=== PATIENT | male | born 1970 | race African-American/Black ===

== ENCOUNTER 2018-05-26 12:38 | Emergency (ER) | payer MEDICAID ==
[~2018-05-26] VITALS: Ht 175.3 cm; Wt 100.0 kg
[~2018-05-26 12:38] MED LIST: INSLAN SQ; INSU100V SQ; LISI-660 PO
[2018-05-26 12:59] LABS: GLUCOSE,POINT OF CARE 285 MG/DL (70-110)
[2018-05-26] MEDS ORDERED: SODIUM CHLORIDE 0.9% 2,000 ML IV ONE (14:15)
[2018-05-26] MEDS ORDERED: FentaNYL CITRATE-PF 100 MCG/2 ML VIAL IVP ONE (14:15)
[2018-05-26] MEDS ORDERED: ONDANSETRON HCL 4 MG/2 ML VIAL IVP ONE ×2 (14:15→16:00)
[2018-05-26 14:30] LABS: BASOPHILS % (AUTO) 1.6 % (0.0-2.0); EOSINOPHILS % (AUTO) 1.6 % (1.0-6.0); HEMATOCRIT 36.7 % (41-53); LYMPHOCYTES # (AUTO) 1.5 K/uL (1.0-4.8); LYMPHOCYTES % (AUTO) 25.1 % (22.0-44.0); MEAN CORPUSCULAR HEMOGLOBIN 31.6 pg (26.0-34.0); MEAN CORPUSCULAR HGB CONC 35.6 G/dL (31.0-37.0); MEAN CORPUSCULAR VOLUME 89 fL (80-100); MONOCYTES # (AUTO) 0.4 K/uL (0.1-1.0); MONOCYTES % (AUTO) 5.9 % (2.0-9.0); NEUTROPHILS # (AUTO) 3.9 K/uL (1.8-7.7); NEUTROPHILS % (AUTO) 65.8 % (40.0-70.0); PLATELET COUNT (AUTO) 248 K/uL (150-450); RED BLOOD CELL COUNT(AUTO) 4.13 MIL/uL (4.50-5.90); RED CELL DISTRIBUTION WIDTH 14.2 % (11.5-14.5)
[2018-05-26 15:05] LABS: ALBUMIN 3.6 g/dL (3.4-5.0); ALKALINE PHOSPHATASE 84 U/L (46-116); ANION GAP 9 mmol/L (8-16); BILIRUBIN,TOTAL 0.7 mg/dL (0.1-1.0); CALCIUM, TOTAL 8.2 mg/dL (8.8-10.5); CARBON DIOXIDE 27 mmol/L (22-29); CHLORIDE 93 mmol/L (98-107); GLUCOSE,RANDOM 309 mg/dL (70-110); LIPASE 129 U/L (73-393); POTASSIUM 4.3 mmol/L (3.5-5.1); SODIUM SERUM 129 mmol/L (136-145); UREA NITROGEN, BLOOD 7 mg/dL (7-18)
[2018-05-26 15:56] LABS: ALANINE AMINOTRANSFERASE 59 U/L (12-78); ASPARTATE AMINOTRANSFERASE 30 U/L (15-37); GLOMERULAR FILTR. RATE CALC > 60 mL/min (>60); TOTAL PROTEIN, SERUM 8.4 g/dL (6.4-8.2); TRIGLYCERIDES 1129 mg/dL (15-150)
[2018-05-26] MEDS ORDERED: HYDROCODONE/ACETAMINOPHEN 5-325 MG TABLET PO ONE (16:00)
[2018-05-26 17:12] VITALS: BP 118/56
[2018-05-26 19:09] LABS: LACTIC ACID 1.7 mmol/L (0.4-2.0)
== END 2018-05-26 17:14 | disposition home or self-care (01) ==
LOC: EMS 12:38
DX: E11.65 Type 2 diabetes mellitus with hyperglycemia (principal); K52.9 Noninfective gastroenteritis and colitis, unspecified; K59.00 Constipation, unspecified; E78.1 Pure hyperglyceridemia; I10 Essential (primary) hypertension; F17.210 Nicotine dependence, cigarettes, uncomplicated; Z79.4 Long term (current) use of insulin; Z79.899 Other long term (current) drug therapy
CPT/HCPCS: 36415; 71045; 74176; 80053; 82962; 83605; 83690; 84478; 84484; 85025; 93005; 96361; 96374; 96375; 96376; 99285; 99406; G0480; J2405; J3010; J7030

== ENCOUNTER 2020-12-31 17:00 | Emergency (ER) | payer MEDICAID ==
[~2020-12-31] VITALS: Ht 177.8 cm; Wt 104.5 kg
[~2020-12-31 17:00] MED LIST changes: -LISI-660 PO; +LISI-892 PO
[2020-12-31] MEDS ORDERED: SODIUM CHLORIDE 0.9% 100 ML ONE (17:19)
[2020-12-31] MEDS ORDERED: IOHEXOL 350 MG/ML 150 ML VIAL ONE (17:19)
[2020-12-31 17:35] LABS: BASOPHILS % (AUTO) 0.9 % (0.0-2.0); EOSINOPHILS % (AUTO) 1.4 % (1.0-6.0); HEMATOCRIT 39.5 % (41-53); HEMOGLOBIN 12.9 g/dL (13.5-17.5); LYMPHOCYTES # (AUTO) 2.1 K/uL (1.0-4.8); LYMPHOCYTES % (AUTO) 28.4 % (22.0-44.0); MEAN CORPUSCULAR HEMOGLOBIN 29.8 pg (26.0-34.0); MEAN CORPUSCULAR HGB CONC 32.7 G/dL (31.0-37.0); MEAN CORPUSCULAR VOLUME 91 fL (80-100); MONOCYTES # (AUTO) 0.4 K/uL (0.1-1.0); NEUTROPHILS # (AUTO) 4.6 K/uL (1.8-7.7); NEUTROPHILS % (AUTO) 63.3 % (40.0-70.0); PLATELET COUNT (AUTO) 258 K/uL (150-450); RED BLOOD CELL COUNT(AUTO) 4.32 MIL/uL (4.50-5.90); RED CELL DISTRIBUTION WIDTH 12.7 % (11.5-14.5)
[2020-12-31 17:54] LABS: ANION GAP 10 mmol/L (8-16); CARBON DIOXIDE 26 mmol/L (22-29); CHLORIDE 105 mmol/L (98-107); CREATININE 0.91 mg/dL (0.60-1.30); GLOMERULAR FILTR. RATE CALC > 60 mL/min (>60); GLUCOSE,RANDOM 154 mg/dL (70-110); POTASSIUM 3.9 mmol/L (3.5-5.1); SODIUM SERUM 141 mmol/L (136-145); UREA NITROGEN, BLOOD 14 mg/dL (7-18)
[2020-12-31 17:58] LABS: ALANINE AMINOTRANSFERASE 25 U/L (12-78); ALBUMIN 3.8 g/dL (3.4-5.0); ALKALINE PHOSPHATASE 92 U/L (46-116); ASPARTATE AMINOTRANSFERASE 13 U/L (15-37); BILIRUBIN,TOTAL 0.4 mg/dL (0.1-1.0); TOTAL PROTEIN, SERUM 7.8 g/dL (6.4-8.2)
[2020-12-31] MEDS ORDERED: PERTUSS(ACELL),DIPH,TET VAC/PF 0.5 ML SYRINGE IM. ONE (18:00)
[2020-12-31] MEDS ORDERED: KETOROLAC TROMETHAMINE 30 MG/ML VIAL IVP ONE (20:00)
[2020-12-31] MEDS ORDERED: ACETAMINOPHEN 500 MG TABLET PO ONE (20:00)
[2020-12-31] MEDS ORDERED: SODIUM CHLORIDE 0.9% 1,000 ML IV ONE (20:00)
[2020-12-31] MEDS ORDERED: VANCOMYCIN HCL 1.5 GM in DEXTROSE 5%-WATER 250 ML IV ONE (20:30)
[2020-12-31] MEDS ORDERED: CefTRIAXone SODIUM 2 GM in DEXTROSE 5%-WATER 50 ML IV ONE (20:30)
[2020-12-31] MEDS ORDERED: MORPHINE SULFATE 4 MG/ML SYRINGE IVP ONE (20:30)
[2020-12-31 22:27] LABS: COVID AG,FIA SOURCE NASOPHARYNGEAL
[2021-01-01 07:30] VITALS: BP 121/74
== END 2021-01-01 07:30 | disposition left against medical advice (07) ==
LOC: EMS 17:06
DX: T84.7XXA Infection and inflammatory reaction due to other internal orthopedic prosthetic devices, implants and grafts, initial encounter (principal); L03.211 Cellulitis of face; M54.2 Cervicalgia; L08.9 Local infection of the skin and subcutaneous tissue, unspecified; E11.9 Type 2 diabetes mellitus without complications; I10 Essential (primary) hypertension; Z20.822 Contact with and (suspected) exposure to COVID-19; Z79.4 Long term (current) use of insulin; Z79.899 Other long term (current) drug therapy
CPT/HCPCS: 36415; 70491; 70498; 80053; 85025; 87426; 90471; 90715; 96361; 96365; 96366; 96367; 96375; 99285; A9575; J0696; J1885; J2270; J3370; J7030; J7050; J7060 ×2

== ENCOUNTER 2021-07-30 13:57 | Emergency (ER) | payer MEDICAID ==
[~2021-07-30] VITALS: Ht 175.3 cm; Wt 100.0 kg
[~2021-07-30 13:57] MED LIST changes: +ASPI-1515 PO; +ATOR20TA65 PO; -INSU100V SQ; -LISI-892 PO; +LISI-893 PO
[2021-07-30] MEDS ORDERED: FLUO10CA24 PO (15:18)
[2021-07-30] MEDS ORDERED: ASPI-1515 PO ×3 (15:18→15:21)
[2021-07-30] MEDS ORDERED: INSLAN SQ ×3 (15:18→15:21)
[2021-07-30] MEDS ORDERED: ATOR20TA65 PO ×3 (15:18→15:21)
[2021-07-30] MEDS ORDERED: glucometer (15:18)
[2021-07-30] MEDS ORDERED: LISI-893 PO ×3 (15:18→15:21)
[2021-07-30] MEDS ORDERED: METF-1211 PO (15:30)
[2021-07-30 15:47] VITALS: BP 140/87
== END 2021-07-30 15:56 | disposition home or self-care (01) ==
LOC: EMS 13:57
DX: E11.65 Type 2 diabetes mellitus with hyperglycemia (principal); I10 Essential (primary) hypertension; F32.9 Major depressive disorder, single episode, unspecified; F20.9 Schizophrenia, unspecified; F41.9 Anxiety disorder, unspecified; Z76.0 Encounter for issue of repeat prescription; Z79.4 Long term (current) use of insulin; Z79.899 Other long term (current) drug therapy
CPT/HCPCS: 82962; 99282

== ENCOUNTER 2021-08-13 10:35 | Emergency (ER) | payer MEDICAID ==
[~2021-08-13] VITALS: Ht 175.3 cm; Wt 100.0 kg
[~2021-08-13 10:35] MED LIST changes: +FLUO10CA24 PO; +METF-1211 PO; +glucometer
[2021-08-13 11:20] VITALS: BP 149/84
== END 2021-08-13 11:57 | disposition home or self-care (01) ==
LOC: EMS 10:44
DX: I10 Essential (primary) hypertension (principal); R20.0 Anesthesia of skin; F31.9 Bipolar disorder, unspecified; F41.9 Anxiety disorder, unspecified; E11.9 Type 2 diabetes mellitus without complications; F20.9 Schizophrenia, unspecified; Z86.73 Personal history of transient ischemic attack (TIA), and cerebral infarction without residual deficits; Z79.4 Long term (current) use of insulin; Z79.82 Long term (current) use of aspirin
CPT/HCPCS: 99281; Z7502

== ENCOUNTER 2021-09-04 05:51 | Emergency (ER) | payer MEDICAID ==
[~2021-09-04] VITALS: Ht 175.3 cm; Wt 100.0 kg
[~2021-09-04 05:51] MED LIST changes: -glucometer
[2021-09-04] MEDS ORDERED: LevETIRAcetam 1,000 MG in DEXTROSE 5%-WATER 100 ML IV ONE (06:15)
[2021-09-04 06:33] LABS: ANION GAP 8 mmol/L (8-16); CALCIUM, TOTAL 9.2 mg/dL (8.8-10.5); CARBON DIOXIDE 31 mmol/L (22-29); CHLORIDE 103 mmol/L (98-107); CREATININE 1.04 mg/dL (0.60-1.30); GLOMERULAR FILTR. RATE CALC > 60 mL/min (>60); GLUCOSE,RANDOM 114 mg/dL (70-110); POTASSIUM 3.6 mmol/L (3.5-5.1); SODIUM SERUM 142 mmol/L (136-145); UREA NITROGEN, BLOOD 12 mg/dL (7-18)
[2021-09-04 06:48] LABS: AMPHET/METH SCREEN,URINE NEGATIVE (NEGATIVE); BARBITURATE SCREEN, URINE NEGATIVE (NEGATIVE); BENZODIAZEPINES SCREEN,URINE NEGATIVE (NEGATIVE); CANNABINOID SCREEN,URINE NEGATIVE (NEGATIVE); COCAINE SCREEN,URINE NEGATIVE (NEGATIVE); METHADONE SCREEN, URINE NEGATIVE (NEGATIVE); OPIATE SCREEN,URINE NEGATIVE (NEGATIVE)
[2021-09-04 06:50] LABS: PHENCYCLIDINE SCREEN,URINE POSITIVE (NEGATIVE)
[2021-09-04] MEDS ORDERED: LEVE500T20 PO (07:37)
[2021-09-04 07:45] VITALS: BP 181/89
== END 2021-09-04 08:18 | disposition home or self-care (01) ==
LOC: EMS 05:59
DX: G40.909 Epilepsy, unspecified, not intractable, without status epilepticus (principal); F16.10 Hallucinogen abuse, uncomplicated; F41.9 Anxiety disorder, unspecified; F31.9 Bipolar disorder, unspecified; E11.9 Type 2 diabetes mellitus without complications; I10 Essential (primary) hypertension; F20.9 Schizophrenia, unspecified; Z86.73 Personal history of transient ischemic attack (TIA), and cerebral infarction without residual deficits; Z79.4 Long term (current) use of insulin; Z79.82 Long term (current) use of aspirin
CPT/HCPCS: 36415; 80048; 80307; 96365; 99284; J0712; J7060

== ENCOUNTER 2021-10-05 18:44 | Emergency (ER) | payer MEDICAID ==
[~2021-10-05] VITALS: Ht 175.3 cm; Wt 97.8 kg
[~2021-10-05 18:44] MED LIST changes: +LEVE500T20 PO
[2021-10-05 19:44] LABS: BASOPHILS % (AUTO) 0.7 % (0.0-2.0); EOSINOPHILS % (AUTO) 2.7 % (1.0-6.0); HEMATOCRIT 37.5 % (41-53); HEMOGLOBIN 12.6 g/dL (13.5-17.5); LYMPHOCYTES # (AUTO) 1.5 K/uL (1.0-4.8); LYMPHOCYTES % (AUTO) 23.5 % (22.0-44.0); MEAN CORPUSCULAR HGB CONC 33.6 G/dL (31.0-37.0); MEAN CORPUSCULAR VOLUME 89 fL (80-100); MONOCYTES # (AUTO) 0.5 K/uL (0.1-1.0); MONOCYTES % (AUTO) 7.9 % (2.0-9.0); NEUTROPHILS # (AUTO) 4.2 K/uL (1.8-7.7); NEUTROPHILS % (AUTO) 65.2 % (40.0-70.0); PLATELET COUNT (AUTO) 239 K/uL (150-450); RED BLOOD CELL COUNT(AUTO) 4.21 MIL/uL (4.50-5.90); RED CELL DISTRIBUTION WIDTH 12.2 % (11.5-14.5)
[2021-10-05 19:56] LABS: GLUCOMETER DEV NAME(LOC) ERT.5; GLUCOSE,POINT OF CARE 101 MG/DL (70-110)
[2021-10-05 20:00] LABS: ALKALINE PHOSPHATASE 91 U/L (46-116); BILIRUBIN,TOTAL 0.4 mg/dL (0.1-1.0); CALCIUM, TOTAL 9.1 mg/dL (8.8-10.5); CARBON DIOXIDE 29 mmol/L (22-29); GLOMERULAR FILTR. RATE CALC > 60 mL/min (>60); GLUCOSE,RANDOM 105 mg/dL (70-110); LACTIC ACID 0.6 mmol/L (0.4-2.0); TOTAL PROTEIN, SERUM 7.7 g/dL (6.4-8.2); UREA NITROGEN, BLOOD 15 mg/dL (7-18)
[2021-10-05 20:10] LABS: ALANINE AMINOTRANSFERASE 33 U/L (12-78); ALBUMIN 3.5 g/dL (3.4-5.0); ANION GAP 6 mmol/L (8-16); ASPARTATE AMINOTRANSFERASE 26 U/L (15-37); CHLORIDE 106 mmol/L (98-107); SODIUM SERUM 141 mmol/L (136-145)
[2021-10-05] MEDS ORDERED: ACETAMINOPHEN/CODEINE 300 MG-30 MG/12.5 ML ELIXIR UDCUP PO ONE (22:30)
[2021-10-05] MEDS ORDERED: LevETIRAcetam 100 MG/ML 5 ML SOLUTION UDCUP PO ONE (22:30)
[2021-10-05] MEDS ORDERED: LISI-893 PO (23:30)
[2021-10-05] MEDS ORDERED: LEVE500T20 PO (23:30)
[2021-10-06 01:04] VITALS: BP 121/75
[2021-10-06] MEDS ORDERED: AMOX1TAB16 PO (09:18)
== END 2021-10-06 02:13 | disposition home or self-care (01) ==
LOC: EMS 18:46
DX: G40.909 Epilepsy, unspecified, not intractable, without status epilepticus (principal); E11.9 Type 2 diabetes mellitus without complications; F31.9 Bipolar disorder, unspecified; I10 Essential (primary) hypertension; F41.9 Anxiety disorder, unspecified; F20.9 Schizophrenia, unspecified; Z86.73 Personal history of transient ischemic attack (TIA), and cerebral infarction without residual deficits; Z86.69 Personal history of other diseases of the nervous system and sense organs; Z86.79 Personal history of other diseases of the circulatory system
CPT/HCPCS: 71045; 80053; 82962; 83605; 85025; 93005; 99285; 36415-L1; 36415-TC

== ENCOUNTER 2021-10-06 04:54 | Emergency (ER) | payer MEDICAID ==
[~2021-10-06] VITALS: Ht 175.3 cm; Wt 97.8 kg
[2021-10-06 08:45] VITALS: BP 160/82
[2021-10-06] MEDS ORDERED: NICOTINE 14 MG/24 HOUR PATCH TD ONE (09:15)
[2021-10-06] MEDS ORDERED: AMOX1TAB16 PO (09:18)
== END 2021-10-06 09:19 | disposition left against medical advice (07) ==
LOC: EMS 04:54
DX: M27.2 Inflammatory conditions of jaws (principal); S50.311A Abrasion of right elbow, initial encounter; F41.9 Anxiety disorder, unspecified; F31.9 Bipolar disorder, unspecified; E11.9 Type 2 diabetes mellitus without complications; I10 Essential (primary) hypertension; F20.9 Schizophrenia, unspecified; Z86.73 Personal history of transient ischemic attack (TIA), and cerebral infarction without residual deficits; Z86.69 Personal history of other diseases of the nervous system and sense organs; Z86.79 Personal history of other diseases of the circulatory system; W05.0XXA Fall from non-moving wheelchair, initial encounter; Y92.89 Other specified places as the place of occurrence of the external cause; Y93.89 Activity, other specified; Y99.8 Other external cause status
CPT/HCPCS: 70450; 70486; 72125; 82962; 99284

== ENCOUNTER 2022-07-26 11:00 | Inpatient (IN) | payer MEDICAID ==
[~2022-07-26] VITALS: Ht 175.3 cm; Wt 98.4 kg
[~2022-07-26 11:00] MED LIST changes: +AMOX1TAB16 PO
[2022-07-26] MEDS ORDERED: INSLAN SQ (11:11)
[2022-07-26] MEDS ORDERED: SODIUM CHLORIDE 0.9% 1,000 ML IV ONE (12:15)
[2022-07-26 12:44] LABS: BASOPHILS % (AUTO) 0.6 % (0.0-2.0); EOSINOPHILS % (AUTO) 1.1 % (1.0-6.0); HEMATOCRIT 41.7 % (41-53); HEMOGLOBIN 13.5 g/dL (13.5-17.5); LYMPHOCYTES # (AUTO) 1.6 K/uL (1.0-4.8); LYMPHOCYTES % (AUTO) 21.9 % (22.0-44.0); MEAN CORPUSCULAR HEMOGLOBIN 29.6 pg (26.0-34.0); MEAN CORPUSCULAR HGB CONC 32.3 G/dL (31.0-37.0); MEAN CORPUSCULAR VOLUME 92 fL (80-100); MONOCYTES # (AUTO) 0.4 K/uL (0.1-1.0); MONOCYTES % (AUTO) 4.9 % (2.0-9.0); NEUTROPHILS # (AUTO) 5.2 K/uL (1.8-7.7); NEUTROPHILS % (AUTO) 71.5 % (40.0-70.0); PLATELET COUNT (AUTO) 289 K/uL (150-450); RED BLOOD CELL COUNT(AUTO) 4.55 MIL/uL (4.50-5.90)
[2022-07-26 12:53] LABS: ANION GAP 10 mmol/L (8-16); CALCIUM, TOTAL 9.2 mg/dL (8.8-10.5); CARBON DIOXIDE 26 mmol/L (22-29); CHLORIDE 101 mmol/L (98-107); CREATININE 0.93 mg/dL (0.60-1.30); GLOMERULAR FILTR. RATE CALC > 60 mL/min (>60); GLUCOSE,RANDOM 260 mg/dL (70-110); POTASSIUM 4.2 mmol/L (3.5-5.1); SODIUM SERUM 137 mmol/L (136-145); UREA NITROGEN, BLOOD 17 mg/dL (7-18)
[2022-07-26 12:58] LABS: ALANINE AMINOTRANSFERASE 31 U/L (12-78); ALKALINE PHOSPHATASE 100 U/L (46-116); ASPARTATE AMINOTRANSFERASE 19 U/L (15-37); BILIRUBIN,TOTAL 0.4 mg/dL (0.1-1.0); TOTAL PROTEIN, SERUM 8.3 g/dL (6.4-8.2)
[2022-07-26 13:00] LABS: LACTIC ACID 1.2 mmol/L (0.4-2.0)
[2022-07-26] MEDS ORDERED: PIPERACILLIN/TAZO 3.375 GM/D5W 50 ML IV ONE (15:15)
[2022-07-26 18:52] LABS: COVID AG,FIA SOURCE NASAL SWAB
[2022-07-26] MEDS ORDERED: MORPHINE SULFATE 2 MG/ML SYRINGE IVP PRN (19:00)
[2022-07-26] MEDS ORDERED: ONDANSETRON HCL 4 MG/2 ML VIAL IVP PRN (19:00)
[2022-07-26] MEDS ORDERED: DEXTROSE 50%-WATER 25 GM/50 ML SYRINGE IVP PRN (19:00)
[2022-07-26] MEDS: RINGERS SOLUTION,LACTATED 1,000 ML IV SCH (20:15)
[2022-07-26] MEDS: DOCUSATE SODIUM 100 MG CAPSULE PO SCH (21:00)
[2022-07-26 21:44] VITALS: BP 137/89
[2022-07-26] MEDS: INSULIN GLARGINE,HUM.REC.ANLOG 100 UNITS/ML SQ SCH (22:05)
[2022-07-27] MEDS ORDERED: SODIUM CHLORIDE 0.9% 250 ML IV ONE (01:36)
[2022-07-27] MEDS: CLINDAMYCIN 600 MG/D5% WATER 50 ML IV SCH ×3 (01:51→17:44)
[2022-07-27 03:39] VITALS: BP 140/76
[2022-07-27] MEDS: RINGERS SOLUTION,LACTATED 1,000 ML IV SCH ×2 (06:40→17:44)
[2022-07-27 07:47] VITALS: BP 144/93
[2022-07-27 08:26] LABS: GLUCOMETER DEV NAME(LOC) 6S.1B; GLUCOSE,POINT OF CARE 112 MG/DL (70-110)
[2022-07-27 08:26] LABS: GLUCOMETER DEV NAME(LOC) 6S.1B; GLUCOSE,POINT OF CARE 124 MG/DL (70-110)
[2022-07-27] MEDS: DOCUSATE SODIUM 100 MG CAPSULE PO SCH ×2 (09:00→20:33)
[2022-07-27] MEDS: LevETIRAcetam 500 MG in DEXTROSE 5%-WATER 100 ML IV SCH ×2 (09:55→20:20)
[2022-07-27] MEDS: INSULIN LISPRO 100 UNITS/ML SQ PRN ×3 (13:27→20:22)
[2022-07-27 13:36] LABS: GLUCOMETER DEV NAME(LOC) 6S.1B; GLUCOSE,POINT OF CARE 103 MG/DL (70-110)
[2022-07-27 13:36] LABS: GLUCOMETER DEV NAME(LOC) 6S.1B; GLUCOSE,POINT OF CARE 123 MG/DL (70-110)
[2022-07-27 15:42] VITALS: BP 137/88
[2022-07-27] MEDS: AMPICILLIN SODIUM/SULBACTAM NA 3 GM in SODIUM CHLORIDE 0.9% 100 ML IV SCH ×2 (19:03→23:23)
[2022-07-27 19:52] LABS: GLUCOMETER DEV NAME(LOC) 6S.1B; GLUCOSE,POINT OF CARE 124 MG/DL (70-110)
[2022-07-27 20:01] VITALS: BP 148/86
[2022-07-27] MEDS: INSULIN GLARGINE,HUM.REC.ANLOG 100 UNITS/ML SQ SCH (20:22)
[2022-07-27] MEDS: HEPARIN SODIUM,PORCINE 5,000 UNITS/ML VIAL SQ SCH (23:23)
[2022-07-28 02:17] LABS: GLUCOMETER DEV NAME(LOC) 6N.2B; GLUCOSE,POINT OF CARE 174 MG/DL (70-110)
[2022-07-28 04:08] VITALS: BP 137/77
[2022-07-28] MEDS: AMPICILLIN SODIUM/SULBACTAM NA 3 GM in SODIUM CHLORIDE 0.9% 100 ML IV SCH ×3 (06:06→17:46)
[2022-07-28 06:37] LABS: GLUCOMETER DEV NAME(LOC) 6N.2B; GLUCOSE,POINT OF CARE 115 MG/DL (70-110)
[2022-07-28 07:32] VITALS: BP 153/89
[2022-07-28] MEDS: HEPARIN SODIUM,PORCINE 5,000 UNITS/ML VIAL SQ SCH ×3 (08:00→15:14)
[2022-07-28] MEDS: DOCUSATE SODIUM 100 MG CAPSULE PO SCH ×2 (08:05→20:43)
[2022-07-28] MEDS: LevETIRAcetam 500 MG in DEXTROSE 5%-WATER 100 ML IV SCH ×2 (08:08→20:44)
[2022-07-28] MEDS ORDERED: SODIUM CHLORIDE 0.9% 500 ML IV ONE (08:14)
[2022-07-28 08:29] LABS: ALANINE AMINOTRANSFERASE 16 U/L (12-78); ALBUMIN 3.3 g/dL (3.4-5.0); ALKALINE PHOSPHATASE 76 U/L (46-116); ANION GAP 4 mmol/L (8-16); ASPARTATE AMINOTRANSFERASE 15 U/L (15-37); BILIRUBIN,TOTAL 0.5 mg/dL (0.1-1.0); CALCIUM, TOTAL 8.8 mg/dL (8.8-10.5); CARBON DIOXIDE 31 mmol/L (22-29); CHLORIDE 105 mmol/L (98-107); CREATININE 0.98 mg/dL (0.60-1.30); GLOMERULAR FILTR. RATE CALC > 60 mL/min (>60); GLUCOSE,RANDOM 108 mg/dL (70-110); POTASSIUM 4.3 mmol/L (3.5-5.1); SODIUM SERUM 140 mmol/L (136-145); TOTAL PROTEIN, SERUM 6.9 g/dL (6.4-8.2); UREA NITROGEN, BLOOD 10 mg/dL (7-18)
[2022-07-28 08:38] LABS: C-REACTIVE PROTEIN QUANT 0.05 mg/dL (0.00-0.30)
[2022-07-28 10:05] LABS: BASOPHILS % (AUTO) 0.7 % (0.0-2.0); EOSINOPHILS % (AUTO) 2.6 % (1.0-6.0); HEMATOCRIT 39.6 % (41-53); HEMOGLOBIN 12.6 g/dL (13.5-17.5); LYMPHOCYTES # (AUTO) 2.1 K/uL (1.0-4.8); LYMPHOCYTES % (AUTO) 39.5 % (22.0-44.0); MEAN CORPUSCULAR HEMOGLOBIN 29.4 pg (26.0-34.0); MEAN CORPUSCULAR HGB CONC 31.8 G/dL (31.0-37.0); MEAN CORPUSCULAR VOLUME 92 fL (80-100); MONOCYTES # (AUTO) 0.4 K/uL (0.1-1.0); NEUTROPHILS # (AUTO) 2.6 K/uL (1.8-7.7); NEUTROPHILS % (AUTO) 49.2 % (40.0-70.0); PLATELET COUNT (AUTO) 266 K/uL (150-450); RED BLOOD CELL COUNT(AUTO) 4.28 MIL/uL (4.50-5.90); RED CELL DISTRIBUTION WIDTH 12.7 % (11.5-14.5)
[2022-07-28] MEDS: INSULIN LISPRO 100 UNITS/ML SQ PRN ×2 (11:48→17:47)
[2022-07-28] MEDS: RINGERS SOLUTION,LACTATED 1,000 ML IV SCH (11:49)
[2022-07-28 15:35] VITALS: BP 135/81
[2022-07-28 17:46] LABS: GLUCOMETER DEV NAME(LOC) 6S.1B; GLUCOSE,POINT OF CARE 144 MG/DL (70-110)
[2022-07-28 19:31] LABS: GLUCOMETER DEV NAME(LOC) 6S.1B; GLUCOSE,POINT OF CARE 157 MG/DL (70-110)
[2022-07-28 20:00] VITALS: BP 151/80
[2022-07-28] MEDS: INSULIN GLARGINE,HUM.REC.ANLOG 100 UNITS/ML SQ SCH (20:52)
[2022-07-28 21:37] LABS: GLUCOMETER DEV NAME(LOC) 6N.2B; GLUCOSE,POINT OF CARE 123 MG/DL (70-110)
[2022-07-29] MEDS: AMPICILLIN SODIUM/SULBACTAM NA 3 GM in SODIUM CHLORIDE 0.9% 100 ML IV SCH ×5 (00:16→23:30)
[2022-07-29 04:38] VITALS: BP 140/96
[2022-07-29] MEDS: INSULIN LISPRO 100 UNITS/ML SQ PRN ×2 (05:40→17:39)
[2022-07-29 05:56] LABS: GLUCOMETER DEV NAME(LOC) 6S.1B; GLUCOSE,POINT OF CARE 159 MG/DL (70-110)
[2022-07-29 07:30] VITALS: BP 135/68
[2022-07-29] MEDS: LevETIRAcetam 500 MG in DEXTROSE 5%-WATER 100 ML IV SCH ×2 (08:15→20:16)
[2022-07-29] MEDS: HEPARIN SODIUM,PORCINE 5,000 UNITS/ML VIAL SQ SCH ×4 (08:20→23:31)
[2022-07-29] MEDS: DOCUSATE SODIUM 100 MG CAPSULE PO SCH ×2 (08:21→20:20)
[2022-07-29] MEDS: RINGERS SOLUTION,LACTATED 1,000 ML IV SCH (08:23)
[2022-07-29 11:51] LABS: GLUCOMETER DEV NAME(LOC) 6S.1B; GLUCOSE,POINT OF CARE 127 MG/DL (70-110)
[2022-07-29 15:43] VITALS: BP 154/81
[2022-07-29 17:46] LABS: GLUCOMETER DEV NAME(LOC) 6S.1B; GLUCOSE,POINT OF CARE 236 MG/DL (70-110)
[2022-07-29 19:29] VITALS: BP 124/70
[2022-07-29] MEDS: INSULIN GLARGINE,HUM.REC.ANLOG 100 UNITS/ML SQ SCH (20:23)
[2022-07-29 21:16] LABS: GLUCOMETER DEV NAME(LOC) 6S.1B; GLUCOSE,POINT OF CARE 116 MG/DL (70-110)
[2022-07-30 04:17] VITALS: BP 140/76
[2022-07-30] MEDS: AMPICILLIN SODIUM/SULBACTAM NA 3 GM in SODIUM CHLORIDE 0.9% 100 ML IV SCH ×4 (05:50→23:25)
[2022-07-30] MEDS: INSULIN LISPRO 100 UNITS/ML SQ PRN ×3 (05:55→17:32)
[2022-07-30 06:31] LABS: GLUCOMETER DEV NAME(LOC) 6S.1B; GLUCOSE,POINT OF CARE 144 MG/DL (70-110)
[2022-07-30] MEDS: LevETIRAcetam 500 MG in DEXTROSE 5%-WATER 100 ML IV SCH ×2 (08:28→20:32)
[2022-07-30] MEDS: DOCUSATE SODIUM 100 MG CAPSULE PO SCH ×2 (08:28→20:33)
[2022-07-30] MEDS: HEPARIN SODIUM,PORCINE 5,000 UNITS/ML VIAL SQ SCH ×3 (08:28→23:22)
[2022-07-30 08:31] VITALS: BP 138/78
[2022-07-30 12:07] LABS: GLUCOMETER DEV NAME(LOC) 6N.2B; GLUCOSE,POINT OF CARE 174 MG/DL (70-110)
[2022-07-30 15:13] VITALS: BP 140/82
[2022-07-30 17:56] LABS: GLUCOMETER DEV NAME(LOC) 6N.2B; GLUCOSE,POINT OF CARE 258 MG/DL (70-110)
[2022-07-30 19:40] VITALS: BP 141/68
[2022-07-30] MEDS: INSULIN GLARGINE,HUM.REC.ANLOG 100 UNITS/ML SQ SCH (20:39)
[2022-07-30 22:21] LABS: GLUCOMETER DEV NAME(LOC) 6N.2B; GLUCOSE,POINT OF CARE 171 MG/DL (70-110)
[2022-07-31 04:10] VITALS: BP 147/75
[2022-07-31] MEDS: AMPICILLIN SODIUM/SULBACTAM NA 3 GM in SODIUM CHLORIDE 0.9% 100 ML IV SCH ×3 (05:41→17:57)
[2022-07-31 06:46] LABS: GLUCOMETER DEV NAME(LOC) 6S.1B; GLUCOSE,POINT OF CARE 117 MG/DL (70-110)
[2022-07-31] MEDS: HEPARIN SODIUM,PORCINE 5,000 UNITS/ML VIAL SQ SCH ×2 (07:45→16:40)
[2022-07-31] MEDS: DOCUSATE SODIUM 100 MG CAPSULE PO SCH ×2 (07:45→21:00)
[2022-07-31 08:06] VITALS: BP 140/78
[2022-07-31] MEDS ORDERED: RINGERS SOLUTION,LACTATED 1,000 ML IV ONE ×2 (08:15→09:49)
[2022-07-31] MEDS: LevETIRAcetam 500 MG in DEXTROSE 5%-WATER 100 ML IV SCH ×2 (09:00→21:24)
[2022-07-31] MEDS ORDERED: VANCOMYCIN HCL 1 GM/VIAL ONE (09:05)
[2022-07-31] MEDS ORDERED: BUPIVACAINE/EPI/PF 0.5% 30 ML VIAL ONE (09:10)
[2022-07-31] MEDS ORDERED: FentaNYL CITRATE PF 100 MCG/2 ML VIAL IVP PRN (10:00)
[2022-07-31] MEDS ORDERED: HYDROmorphone HCL 2 MG/ML SYRINGE IVP PRN (10:00)
[2022-07-31] MEDS ORDERED: MUPIROCIN CALCIUM 2% 22 GM OINTMENT ONE (10:32)
[2022-07-31] MEDS ORDERED: MORPHINE SULFATE 2 MG/ML SYRINGE IVP PRN ×2 (11:15)
[2022-07-31] MEDS ORDERED: ACETAMINOPHEN 1000 MG/ISO-OSM 100 ML IV ONE (11:15)
[2022-07-31] MEDS ORDERED: HYDROCODONE/ACETAMINOPHEN 5-325 MG TABLET PO PRN (11:15)
[2022-07-31 12:21] LABS: GLUCOMETER DEV NAME(LOC) 6N.2B; GLUCOSE,POINT OF CARE 181 MG/DL (70-110)
[2022-07-31 15:47] VITALS: BP 136/80
[2022-07-31 18:46] LABS: GLUCOMETER DEV NAME(LOC) 6N.2B; GLUCOSE,POINT OF CARE 183 MG/DL (70-110)
[2022-07-31] MEDS: OXYGEN THERAPY IH SCH (20:00)
[2022-07-31 20:04] VITALS: BP 131/77
[2022-07-31] MEDS: INSULIN GLARGINE,HUM.REC.ANLOG 100 UNITS/ML SQ SCH ×2 (21:00→22:55)
[2022-08-01] MEDS: AMPICILLIN SODIUM/SULBACTAM NA 3 GM in SODIUM CHLORIDE 0.9% 100 ML IV SCH ×5 (00:16→23:45)
[2022-08-01] MEDS: HEPARIN SODIUM,PORCINE 5,000 UNITS/ML VIAL SQ SCH ×4 (00:17→23:46)
[2022-08-01 04:12] VITALS: BP 127/67
[2022-08-01 05:46] LABS: GLUCOMETER DEV NAME(LOC) 6S.1B; GLUCOSE,POINT OF CARE 150 MG/DL (70-110)
[2022-08-01] MEDS: INSULIN LISPRO 100 UNITS/ML SQ PRN ×3 (05:58→20:35)
[2022-08-01] MEDS ORDERED: FentaNYL CITRATE PF 100 MCG/2 ML VIAL IVP ONE (06:42)
[2022-08-01] MEDS ORDERED: MIDAZOLAM HCL 2 MG/2 ML VIAL IVP ONE (06:42)
[2022-08-01] MEDS ORDERED: LIDOCAINE/PF 2% 5 ML VIAL IM ONE (06:52)
[2022-08-01] MEDS ORDERED: PROPOFOL 1% 20 ML VIAL IVP ONE (06:52)
[2022-08-01] MEDS ORDERED: ROCURONIUM BROMIDE 10 MG/ML 5 ML VIAL IVP ONE (06:52)
[2022-08-01] MEDS ORDERED: METOCLOPRAMIDE HCL 5 MG/ML 2 ML VIAL IVP ONE (06:52)
[2022-08-01] MEDS ORDERED: DEXAMETHASONE SOD PHOS 4 MG/ML VIAL IVP ONE (06:52)
[2022-08-01] MEDS ORDERED: KETOROLAC TROMETHAMINE 60 MG/2 ML VIAL IM ONE (06:52)
[2022-08-01] MEDS ORDERED: GLYCOPYRROLATE 0.2 MG/ML VIAL IM ONE (06:52)
[2022-08-01] MEDS ORDERED: ALBUTEROL SULFATE HFA 90 MCG/PUFF 8 GM INHALER IH ONE (06:52)
[2022-08-01 07:27] VITALS: BP 116/55
[2022-08-01] MEDS: OXYGEN THERAPY IH SCH ×2 (08:00→20:00)
[2022-08-01] MEDS: LevETIRAcetam 500 MG in DEXTROSE 5%-WATER 100 ML IV SCH ×2 (08:50→20:27)
[2022-08-01] MEDS: DOCUSATE SODIUM 100 MG CAPSULE PO SCH ×2 (08:59→21:00)
[2022-08-01 11:32] LABS: GLUCOMETER DEV NAME(LOC) 6N.2B; GLUCOSE,POINT OF CARE 158 MG/DL (70-110)
[2022-08-01 14:16] LABS: GLUCOMETER DEV NAME(LOC) 6N.2B; GLUCOSE,POINT OF CARE 123 MG/DL (70-110)
[2022-08-01 15:37] VITALS: BP 134/83
[2022-08-01] MEDS ORDERED: SODIUM CHLORIDE 0.9% 500 ML IV ONE (17:37)
[2022-08-01 19:48] VITALS: BP 123/58
[2022-08-01] MEDS: INSULIN GLARGINE,HUM.REC.ANLOG 100 UNITS/ML SQ SCH (20:34)
[2022-08-01 20:36] LABS: GLUCOMETER DEV NAME(LOC) 6S.1B; GLUCOSE,POINT OF CARE 171 MG/DL (70-110)
[2022-08-01 23:56] LABS: GLUCOMETER DEV NAME(LOC) 6N.2B; GLUCOSE,POINT OF CARE 156 MG/DL (70-110)
[2022-08-02 04:23] VITALS: BP 125/57
[2022-08-02] MEDS: AMPICILLIN SODIUM/SULBACTAM NA 3 GM in SODIUM CHLORIDE 0.9% 100 ML IV SCH ×2 (05:56→11:39)
[2022-08-02 06:36] LABS: GLUCOMETER DEV NAME(LOC) 6N.2B; GLUCOSE,POINT OF CARE 136 MG/DL (70-110)
[2022-08-02 07:39] VITALS: BP 128/66
[2022-08-02] MEDS: OXYGEN THERAPY IH SCH (08:00)
[2022-08-02] MEDS: LevETIRAcetam 500 MG in DEXTROSE 5%-WATER 100 ML IV SCH (08:22)
[2022-08-02] MEDS: HEPARIN SODIUM,PORCINE 5,000 UNITS/ML VIAL SQ SCH (08:23)
[2022-08-02] MEDS: DOCUSATE SODIUM 100 MG CAPSULE PO SCH (08:24)
== END 2022-08-02 13:41 | disposition left against medical advice (07) | DRG 711 ==
LOC: EMS 11:05 → 6N 20:46
PROVIDERS: ADMIT Internal Medicine; ATTEND Internal Medicine
PROC: 0NBV0ZZ Excision of Left Mandible, Open Approach (ICD-10-PCS; principal; 2022-07-30)
PROC: 0WP Anatomical Regions, General, Removal (ICD-10-PCS; 2022-07-30)
DX: T85.79XA Infection and inflammatory reaction due to other internal prosthetic devices, implants and grafts, initial encounter (principal); E11.69 Type 2 diabetes mellitus with other specified complication; E11.65 Type 2 diabetes mellitus with hyperglycemia; M27.2 Inflammatory conditions of jaws; F20.9 Schizophrenia, unspecified; I10 Essential (primary) hypertension; F31.9 Bipolar disorder, unspecified; Z20.822 Contact with and (suspected) exposure to COVID-19; F41.9 Anxiety disorder, unspecified; Y83.8 Other surgical procedures as the cause of abnormal reaction of the patient, or of later complication, without mention of misadventure at the time of the procedure; E78.00 Pure hypercholesterolemia, unspecified; G40.909 Epilepsy, unspecified, not intractable, without status epilepticus; F99 Mental disorder, not otherwise specified; Z91.199 Patient's noncompliance with other medical treatment and regimen due to unspecified reason; Z86.73 Personal history of transient ischemic attack (TIA), and cerebral infarction without residual deficits; Z79.4 Long term (current) use of insulin; Z79.899 Other long term (current) drug therapy; Z79.82 Long term (current) use of aspirin; Y92.89 Other specified places as the place of occurrence of the external cause
CPT/HCPCS: 70110; 70450; 70487; 80053; 82962; 83605; 84484; 85025; 86140; 87040; 87070; 87081; 87205; 93005; 99285; J0131; J0295; J0690; J0712; J1100; J1644; J1815; J1885; J2250; J2270; J2405; J2543; J2704; J2765; J3010; J3370; J3490; J3535; J7040; J7050; J7060; J7120

== ENCOUNTER 2022-08-19 10:43 | Emergency (ER) | payer MEDICAID ==
[~2022-08-19] VITALS: Ht 175.3 cm; Wt 0.9 kg
[~2022-08-19 10:43] MED LIST changes: -AMOX1TAB16 PO; -ASPI-1515 PO; -ATOR20TA65 PO; -FLUO10CA24 PO; -LEVE500T20 PO; -LISI-893 PO; -METF-1211 PO
[2022-08-19 11:49] LABS: BASOPHILS % (AUTO) 0.5 % (0.0-2.0); EOSINOPHILS % (AUTO) 1.6 % (1.0-6.0); HEMATOCRIT 39.4 % (41-53); HEMOGLOBIN 12.8 g/dL (13.5-17.5); LYMPHOCYTES # (AUTO) 1.6 K/uL (1.0-4.8); LYMPHOCYTES % (AUTO) 24.8 % (22.0-44.0); MEAN CORPUSCULAR HEMOGLOBIN 30.2 pg (26.0-34.0); MEAN CORPUSCULAR HGB CONC 32.5 G/dL (31.0-37.0); MEAN CORPUSCULAR VOLUME 93 fL (80-100); MONOCYTES # (AUTO) 0.4 K/uL (0.1-1.0); MONOCYTES % (AUTO) 6.1 % (2.0-9.0); NEUTROPHILS # (AUTO) 4.4 K/uL (1.8-7.7); PLATELET COUNT (AUTO) 228 K/uL (150-450); RED BLOOD CELL COUNT(AUTO) 4.25 MIL/uL (4.50-5.90); RED CELL DISTRIBUTION WIDTH 12.9 % (11.5-14.5)
[2022-08-19 12:09] LABS: ANION GAP 9 mmol/L (8-16); CARBON DIOXIDE 27 mmol/L (22-29); CHLORIDE 105 mmol/L (98-107); CREATININE 1.07 mg/dL (0.60-1.30); GLOMERULAR FILTR. RATE CALC > 60 mL/min (>60); GLUCOSE,RANDOM 144 mg/dL (70-110); POTASSIUM 3.6 mmol/L (3.5-5.1); SODIUM SERUM 141 mmol/L (136-145); UREA NITROGEN, BLOOD 16 mg/dL (7-18)
[2022-08-19 12:12] LABS: ALANINE AMINOTRANSFERASE 45 U/L (12-78); ALBUMIN 3.8 g/dL (3.4-5.0); ALKALINE PHOSPHATASE 81 U/L (46-116); ASPARTATE AMINOTRANSFERASE 79 U/L (15-37); BILIRUBIN,TOTAL 0.4 mg/dL (0.1-1.0); TOTAL PROTEIN, SERUM 7.4 g/dL (6.4-8.2)
[2022-08-19 15:56] LABS: AMPHET/METH SCREEN,URINE NEGATIVE (NEGATIVE); BARBITURATE SCREEN, URINE NEGATIVE (NEGATIVE); BENZODIAZEPINES SCREEN,URINE NEGATIVE (NEGATIVE); CANNABINOID SCREEN,URINE NEGATIVE (NEGATIVE); COCAINE SCREEN,URINE NEGATIVE (NEGATIVE); METHADONE SCREEN, URINE NEGATIVE (NEGATIVE); OPIATE SCREEN,URINE NEGATIVE (NEGATIVE); PHENCYCLIDINE SCREEN,URINE POSITIVE (NEGATIVE)
[2022-08-19 16:00] VITALS: BP 132/78
== END 2022-08-19 16:23 | disposition home or self-care (01) ==
LOC: EMS 10:43
DX: F16.10 Hallucinogen abuse, uncomplicated (principal); F20.9 Schizophrenia, unspecified; E11.9 Type 2 diabetes mellitus without complications; F31.9 Bipolar disorder, unspecified; I10 Essential (primary) hypertension; F41.9 Anxiety disorder, unspecified; Z86.73 Personal history of transient ischemic attack (TIA), and cerebral infarction without residual deficits; Z79.4 Long term (current) use of insulin
CPT/HCPCS: 99283; 80053; 85025; 36415; 80307; G0480

== ENCOUNTER 2022-08-30 16:03 | Emergency (ER) | payer MEDICAID | END 2022-08-30 16:34 | disposition left against medical advice (07) | LOC: EMS 16:19 | DX: Z53.21 Procedure and treatment not carried out due to patient leaving prior to being seen by health care provider (principal) ==

== ENCOUNTER 2022-10-27 10:25 | Emergency (ER) | payer MEDICAID ==
[~2022-10-27] VITALS: Ht 175.3 cm; Wt 100.0 kg
[2022-10-27 10:29] VITALS: BP 128/78
[2022-10-27] MEDS ORDERED: LISI-893 PO ×2 (10:29→11:36)
[2022-10-27] MEDS ORDERED: ASPI-1450 PO (10:29)
[2022-10-27] MEDS ORDERED: ATOR20TA PO ×2 (10:36→11:36)
[2022-10-27] MEDS ORDERED: METF-1211 PO ×2 (10:36→11:36)
[2022-10-27] MEDS ORDERED: FLUO10CA24 PO (10:36)
[2022-10-27] MEDS ORDERED: ASPI-1227 PO (11:36)
[2022-10-27] MEDS ORDERED: INSLAN SQ (11:36)
[2022-10-27] MEDS ORDERED: LANC-893 TP (11:36)
[2022-10-27] MEDS ORDERED: FLUO20CA36 PO (11:36)
[2022-10-27] MEDS ORDERED: NEED-462 SQ (11:36)
== END 2022-10-27 11:43 | disposition home or self-care (01) ==
LOC: EMS 10:29
DX: E11.65 Type 2 diabetes mellitus with hyperglycemia (principal); F31.9 Bipolar disorder, unspecified; F41.9 Anxiety disorder, unspecified; I10 Essential (primary) hypertension; F20.9 Schizophrenia, unspecified; Z79.4 Long term (current) use of insulin; Z76.0 Encounter for issue of repeat prescription
CPT/HCPCS: 82962; 99282

== ENCOUNTER 2023-02-06 09:58 | Inpatient (IN) | payer MEDICAID ==
[~2023-02-06] VITALS: Ht 175.3 cm; Wt 105.3 kg
[~2023-02-06 09:58] MED LIST changes: +ASPI-1227 PO; +ASPI-1450 PO; +ATOR20TA PO; +FLUO10CA24 PO; +FLUO20CA36 PO; +LANC-893 TP; +LISI-893 PO; +METF-1211 PO; +NEED-462 SQ
[2023-02-06 10:27] LABS: BASOPHILS % (AUTO) 0.8 % (0.0-2.0); EOSINOPHILS % (AUTO) 0.8 % (1.0-6.0); HEMATOCRIT 42.1 % (41-53); HEMOGLOBIN 13.8 g/dL (13.5-17.5); LYMPHOCYTES # (AUTO) 1.2 K/uL (1.0-4.8); LYMPHOCYTES % (AUTO) 18.7 % (22.0-44.0); MEAN CORPUSCULAR HEMOGLOBIN 29.8 pg (26.0-34.0); MEAN CORPUSCULAR HGB CONC 32.7 G/dL (31.0-37.0); MEAN CORPUSCULAR VOLUME 91 fL (80-100); MONOCYTES # (AUTO) 0.3 K/uL (0.1-1.0); MONOCYTES % (AUTO) 4.4 % (2.0-9.0); NEUTROPHILS # (AUTO) 4.9 K/uL (1.8-7.7); NEUTROPHILS % (AUTO) 75.3 % (40.0-70.0); PLATELET COUNT (AUTO) 216 K/uL (150-450); RED BLOOD CELL COUNT(AUTO) 4.61 MIL/uL (4.50-5.90); RED CELL DISTRIBUTION WIDTH 13.5 % (11.5-14.5); WHITE BLOOD COUNT (AUTO) 6.5 K/uL (4.5-11.0)
[2023-02-06] MEDS ORDERED: SODIUM CHLORIDE 0.9% 100 ML ONE (10:38)
[2023-02-06] MEDS ORDERED: IOHEXOL 300 MG/ML 100 ML VIAL ONE (10:38)
[2023-02-06 10:42] LABS: PROTHROMBIN TIME 10.3 SEC (9.4-11.6)
[2023-02-06] MEDS ORDERED: ALTEPLASE PER STROKE PROTOCOL CLINICAL ONE (10:45)
[2023-02-06] MEDS ORDERED: SODIUM CHLORIDE 0.9% 1,000 ML IV ONE (10:45)
[2023-02-06] MEDS ORDERED: HydrALAZINE HCL 10 MG TABLET PO PRN (10:45)
[2023-02-06] MEDS ORDERED: ALTEPLASE 81 MG in WATER FOR INJECTION,STERILE 81 ML IV ONE (10:45)
[2023-02-06] MEDS ORDERED: DEXTROSE 50%-WATER 25 GM/50 ML SYRINGE IVP PRN (10:45)
[2023-02-06] MEDS ORDERED: ALTEPLASE 9 MG in WATER FOR INJECTION,STERILE 9 ML IV ONE (10:45)
[2023-02-06 10:49] LABS: ANION GAP 9 mmol/L (8-16); CALCIUM, TOTAL 9.4 mg/dL (8.8-10.5); CARBON DIOXIDE 27 mmol/L (22-29); CHLORIDE 97 mmol/L (98-107); CREATININE 1.12 mg/dL (0.60-1.30); GLOMERULAR FILTR. RATE CALC > 60 mL/min (>60); GLUCOSE,RANDOM 255 mg/dL (70-110); POTASSIUM 3.8 mmol/L (3.5-5.1); SODIUM SERUM 133 mmol/L (136-145); UREA NITROGEN, BLOOD 11 mg/dL (7-18)
[2023-02-06 10:56] LABS: ALANINE AMINOTRANSFERASE 39 U/L (12-78); ALBUMIN 3.9 g/dL (3.4-5.0); ALKALINE PHOSPHATASE 95 U/L (46-116); ASPARTATE AMINOTRANSFERASE 29 U/L (15-37); BILIRUBIN,TOTAL 0.5 mg/dL (0.1-1.0); TROPONIN I-HIGH SENSITIVITY 27 ng/L (<76)
[2023-02-06] MEDS ORDERED: ASPIRIN 81 MG CHEWABLE TABLET PO ONE (11:00)
[2023-02-06 11:44] LABS: APPEARANCE,URINE CLEAR (CLEAR); BILIRUBIN,URINE NEGATIVE (NEGATIVE); COLOR,URINE COLORLESS (YELLOW); GLUCOSE, URINE (UA) >=1000 mg/dL (NEGATIVE); KETONES,URINE NEGATIVE (NEGATIVE); LEUKOCYTE ESTERASE ,URINE NEGATIVE (NEGATIVE); NITRATE,URINE NEGATIVE (NEGATIVE); OCCULT BLOOD,URINE TRACE (NEGATIVE); PH,URINE 6.5 (5.0-8.0); PROTEIN,URINE 30-70 mg/dL (NEGATIVE); SPECIFIC GRAVITIY, URINE 1.021 (1.003-1.030); UROBILINOGEN,URINE <=1.0 mg/dL (<=1.0)
[2023-02-06 11:49] LABS: PH,URINE DRUG SCREEN 6.5 (5.0-8.0)
[2023-02-06 11:56] LABS: ALCOHOL, URINE DRUG SCREEN NEGATIVE (NEGATIVE); AMPHET/METH SCREEN,URINE NEGATIVE (NEGATIVE); BACTERIA,URINE None Seen /HPF (None Seen); BARBITURATE SCREEN, URINE NEGATIVE (NEGATIVE); BENZODIAZEPINES SCREEN,URINE NEGATIVE (NEGATIVE); CANNABINOID SCREEN,URINE NEGATIVE (NEGATIVE); COCAINE SCREEN,URINE NEGATIVE (NEGATIVE); METHADONE SCREEN, URINE NEGATIVE (NEGATIVE); OPIATE SCREEN,URINE NEGATIVE (NEGATIVE); PHENCYCLIDINE SCREEN,URINE POSITIVE (NEGATIVE); RBC,URINE 0-2 /HPF (0-2); WBC,URINE None Seen /HPF (0-5)
[2023-02-06 11:57] LABS: SQUAMOUS EPITHELIAL CELL,UR Few /LPF (None Seen)
[2023-02-06 12:07] LABS: COVID AG,FIA SOURCE NASAL SWAB
[2023-02-06 12:32] LABS: SARS-COV2 (COVID) ANTIGEN,FIA Negative (Negative)
[2023-02-06 15:10] VITALS: BP 146/80; PULSE 78; RESP 18; TEMP 98.2
[2023-02-06] MEDS: INSULIN LISPRO 100 UNITS/ML SQ PRN ×2 (17:42→20:25)
[2023-02-06 19:43] VITALS: BP 124/73; PULSE 82; RESP 19; TEMP 98.8
[2023-02-06 20:21] LABS: GLUCOMETER DEV NAME(LOC) 5S.2C; GLUCOSE,POINT OF CARE 275 MG/DL (70-110)
[2023-02-06 23:51] VITALS: BP 122/66; PULSE 77; RESP 19; TEMP 98.1
[2023-02-07 00:21] LABS: GLUCOMETER DEV NAME(LOC) 5N.2C; GLUCOSE,POINT OF CARE 186 MG/DL (70-110)
[2023-02-07 05:10] VITALS: BP 123/65; PULSE 75; RESP 19; TEMP 98.4
[2023-02-07] MEDS: INSULIN LISPRO 100 UNITS/ML SQ PRN ×2 (06:02→12:02)
[2023-02-07 08:40] VITALS: BP 138/72; PULSE 82; RESP 18; TEMP 99
[2023-02-07] MEDS ORDERED: LevETIRAcetam 500 MG TABLET PO SCH (10:45)
[2023-02-07 11:26] VITALS: BP 130/77; PULSE 73; RESP 19; TEMP 98
[2023-02-07] MEDS ORDERED: PHEN100C10 PO (12:18)
[2023-02-07] MEDS ORDERED: LEVE500T8 PO (12:20)
[2023-02-07] MEDS ORDERED: ACETAMINOPHEN 325 MG TABLET PO PRN (13:15)
[2023-02-07] MEDS ORDERED: MAGNESIUM HYDROXIDE SUSPENSION 30 ML UDCUP PO PRN (13:15)
[2023-02-07 14:56] LABS: GLUCOMETER DEV NAME(LOC) 5S.2C; GLUCOSE,POINT OF CARE 297 MG/DL (70-110)
[2023-02-07 14:56] LABS: GLUCOMETER DEV NAME(LOC) 5S.2C; GLUCOSE,POINT OF CARE 224 MG/DL (70-110)
[2023-02-07] MEDS ORDERED: HEPARIN SODIUM,PORCINE 5,000 UNITS/ML VIAL SQ SCH (16:00)
[2023-02-08 08:06] LABS: LDL CHOLESTEROL DIRECT 119 mg/dL (0-99)
[2023-02-08] MEDS ORDERED: FAMOTIDINE 20 MG TABLET PO SCH (09:00)
== END 2023-02-07 14:30 | disposition home or self-care (01) | DRG 812 ==
LOC: EMS 09:58 → 5S 13:29
PROVIDERS: ADMIT Internal Medicine; ATTEND Internal Medicine
DX: T40.991A Poisoning by other psychodysleptics [hallucinogens], accidental (unintentional), initial encounter (principal); G92.8 Other toxic encephalopathy; F31.9 Bipolar disorder, unspecified; G45.9 Transient cerebral ischemic attack, unspecified; F16.10 Hallucinogen abuse, uncomplicated; E11.9 Type 2 diabetes mellitus without complications; F41.9 Anxiety disorder, unspecified; I10 Essential (primary) hypertension; E66.9 Obesity, unspecified; Z20.822 Contact with and (suspected) exposure to COVID-19; R29.706 NIHSS score 6; G40.909 Epilepsy, unspecified, not intractable, without status epilepticus; F20.9 Schizophrenia, unspecified; Y92.89 Other specified places as the place of occurrence of the external cause; Z79.4 Long term (current) use of insulin; Z86.73 Personal history of transient ischemic attack (TIA), and cerebral infarction without residual deficits; Z79.899 Other long term (current) drug therapy; Z79.82 Long term (current) use of aspirin; Z83.3 Family history of diabetes mellitus; Z68.34 Body mass index [BMI] 34.0-34.9, adult
CPT/HCPCS: 70496; 70498; 70551; 71045; 80053; 80307; 81001; 82948; 82962; 83721; 84484; 85025; 85610; 85730; 86850; 86900; 86901; 92610; 93005; 93306; 97165; 97535; 99285; J2997; J7050; Q9967; 36415-L1; 36415-TC; 70450; 70450-TC

== ENCOUNTER 2023-06-15 00:01 | Inpatient (IN) | payer MEDICAID ==
[~2023-06-15] VITALS: Ht 182.9 cm; Wt 100.6 kg
[~2023-06-15 00:01] MED LIST changes: -ASPI-1227 PO; -FLUO20CA36 PO; -INSLAN SQ; +LEVE500T8 PO
[2023-06-15] MEDS ORDERED: LABETALOL HCL 5 MG/ML 20 ML VIAL IVP PRN ×4 (00:15)
[2023-06-15 00:24] LABS: BASOPHILS % (AUTO) 0.8 % (0.0-2.0); EOSINOPHILS % (AUTO) 1.9 % (1.0-6.0); HEMATOCRIT 40.9 % (41-53); LYMPHOCYTES # (AUTO) 1.8 K/uL (1.0-4.8); LYMPHOCYTES % (AUTO) 27.5 % (22.0-44.0); MEAN CORPUSCULAR HEMOGLOBIN 29.5 pg (26.0-34.0); MEAN CORPUSCULAR HGB CONC 31.8 G/dL (31.0-37.0); MEAN CORPUSCULAR VOLUME 93 fL (80-100); MONOCYTES # (AUTO) 0.4 K/uL (0.1-1.0); MONOCYTES % (AUTO) 5.6 % (2.0-9.0); NEUTROPHILS # (AUTO) 4.3 K/uL (1.8-7.7); NEUTROPHILS % (AUTO) 64.2 % (40.0-70.0); PLATELET COUNT (AUTO) 226 K/uL (150-450); RED BLOOD CELL COUNT(AUTO) 4.41 MIL/uL (4.50-5.90); RED CELL DISTRIBUTION WIDTH 12.6 % (11.5-14.5); WHITE BLOOD COUNT (AUTO) 6.7 K/uL (4.5-11.0)
[2023-06-15 00:26] LABS: ANION GAP 7 mmol/L (8-16); CALCIUM, TOTAL 9.2 mg/dL (8.8-10.5); CARBON DIOXIDE 29 mmol/L (22-29); CHLORIDE 101 mmol/L (98-107); CREATININE 1.04 mg/dL (0.60-1.30); GLOMERULAR FILTR. RATE CALC > 60 mL/min (>60); GLUCOSE,RANDOM 209 mg/dL (70-110); POTASSIUM 3.4 mmol/L (3.5-5.1); SODIUM SERUM 137 mmol/L (136-145); UREA NITROGEN, BLOOD 17 mg/dL (7-18)
[2023-06-15 00:30] LABS: PROTHROMBIN TIME 10.3 SEC (9.4-11.6)
[2023-06-15 00:32] LABS: ALANINE AMINOTRANSFERASE 33 U/L (12-78); ALBUMIN 3.6 g/dL (3.4-5.0); ALKALINE PHOSPHATASE 99 U/L (46-116); ASPARTATE AMINOTRANSFERASE 27 U/L (15-37); BILIRUBIN,TOTAL 0.6 mg/dL (0.1-1.0); TOTAL PROTEIN, SERUM 6.9 g/dL (6.4-8.2)
[2023-06-15 00:33] LABS: TROPONIN I-HIGH SENSITIVITY 35 ng/L (<76)
[2023-06-15] MEDS ORDERED: SODIUM CHLORIDE 0.9% 100 ML ONE (00:56)
[2023-06-15] MEDS ORDERED: IOHEXOL 350 MG/ML 100 ML VIAL ONE (00:56)
[2023-06-15 02:37] LABS: APPEARANCE,URINE CLEAR (CLEAR); BILIRUBIN,URINE NEGATIVE (NEGATIVE); COLOR,URINE COLORLESS (YELLOW); GLUCOSE, URINE (UA) >=1000 mg/dL (NEGATIVE); KETONES,URINE NEGATIVE (NEGATIVE); LEUKOCYTE ESTERASE ,URINE NEGATIVE (NEGATIVE); NITRATE,URINE NEGATIVE (NEGATIVE); OCCULT BLOOD,URINE NEGATIVE (NEGATIVE); PH,URINE 6.5 (5.0-8.0); PROTEIN,URINE NEGATIVE (NEGATIVE); UROBILINOGEN,URINE <=1.0 mg/dL (<=1.0)
[2023-06-15 02:42] LABS: AMPHET/METH SCREEN,URINE NEGATIVE (NEGATIVE); BARBITURATE SCREEN, URINE NEGATIVE (NEGATIVE); BENZODIAZEPINES SCREEN,URINE NEGATIVE (NEGATIVE); CANNABINOID SCREEN,URINE NEGATIVE (NEGATIVE); COCAINE SCREEN,URINE NEGATIVE (NEGATIVE); METHADONE SCREEN, URINE NEGATIVE (NEGATIVE); OPIATE SCREEN,URINE NEGATIVE (NEGATIVE); PHENCYCLIDINE SCREEN,URINE POSITIVE (NEGATIVE)
[2023-06-15 02:47] LABS: ALCOHOL, URINE DRUG SCREEN NEGATIVE (NEGATIVE)
[2023-06-15 02:48] LABS: PH,URINE DRUG SCREEN 6.5 (5.0-8.0)
[2023-06-15 02:50] LABS: BACTERIA,URINE None Seen /HPF (None Seen); RBC,URINE None Seen /HPF (0-2); SQUAMOUS EPITHELIAL CELL,UR None Seen /LPF (None Seen); WBC,URINE None Seen /HPF (0-5)
[2023-06-15] MEDS ORDERED: ONDANSETRON HCL 4 MG/2 ML VIAL IVP PRN (03:00)
[2023-06-15] MEDS ORDERED: ACETAMINOPHEN 325 MG TABLET PO PRN (03:00)
[2023-06-15 03:32] LABS: CHOLESTEROL 174 mg/dL (131-200); HDL CHOLESTEROL 44 mg/dL (40-60); LDL CHOL (CALC.) 98 mg/dL (0-130); TRIGLYCERIDES 160 mg/dL (15-150)
[2023-06-15] MEDS: DOCUSATE SODIUM 100 MG CAPSULE PO SCH ×4 (08:06→21:14)
[2023-06-15] MEDS: HEPARIN SODIUM,PORCINE 5,000 UNITS/ML VIAL SQ SCH ×2 (08:07→16:44)
[2023-06-15] MEDS ORDERED: DEXTROSE 50%-WATER 25 GM/50 ML SYRINGE IVP PRN (11:45)
[2023-06-15] MEDS: LevETIRAcetam 500 MG TABLET PO SCH ×2 (11:54→21:14)
[2023-06-15] MEDS: INSULIN LISPRO 100 UNITS/ML SQ PRN ×2 (12:46→21:28)
[2023-06-15 13:10] LABS: TROPONIN I-HIGH SENSITIVITY 22 ng/L (<76)
[2023-06-15 16:28] VITALS: BP 126/81; PULSE 77; RESP 18; TEMP 98
[2023-06-15 17:16] LABS: GLUCOMETER DEV NAME(LOC) 5N.1C; GLUCOSE,POINT OF CARE 128 MG/DL (70-110)
[2023-06-15 20:27] VITALS: BP 121/78; PULSE 89; RESP 16; TEMP 98.1
[2023-06-15] MEDS ORDERED: INSULIN GLARGINE,HUM.REC.ANLOG 100 UNITS/ML SQ SCH (21:00)
[2023-06-15] MEDS ORDERED: ATORVASTATIN CALCIUM 20 MG TABLET PO SCH (21:00)
[2023-06-16 00:16] LABS: GLUCOMETER DEV NAME(LOC) 5N.2C; GLUCOSE,POINT OF CARE 259 MG/DL (70-110)
[2023-06-16 04:30] VITALS: BP 116/75; PULSE 76; RESP 17; TEMP 98.4
[2023-06-16] MEDS: INSULIN LISPRO 100 UNITS/ML SQ PRN ×3 (06:22→18:01)
[2023-06-16 06:38] LABS: BASOPHILS % (AUTO) 0.7 % (0.0-2.0); HEMATOCRIT 39.7 % (41-53); HEMOGLOBIN 12.8 g/dL (13.5-17.5); LYMPHOCYTES # (AUTO) 2.4 K/uL (1.0-4.8); LYMPHOCYTES % (AUTO) 35.6 % (22.0-44.0); MEAN CORPUSCULAR HEMOGLOBIN 29.9 pg (26.0-34.0); MEAN CORPUSCULAR HGB CONC 32.2 G/dL (31.0-37.0); MEAN CORPUSCULAR VOLUME 93 fL (80-100); MONOCYTES # (AUTO) 0.3 K/uL (0.1-1.0); MONOCYTES % (AUTO) 5.1 % (2.0-9.0); NEUTROPHILS # (AUTO) 3.8 K/uL (1.8-7.7); NEUTROPHILS % (AUTO) 56.6 % (40.0-70.0); PLATELET COUNT (AUTO) 244 K/uL (150-450); RED BLOOD CELL COUNT(AUTO) 4.27 MIL/uL (4.50-5.90); RED CELL DISTRIBUTION WIDTH 12.5 % (11.5-14.5); WHITE BLOOD COUNT (AUTO) 6.6 K/uL (4.5-11.0)
[2023-06-16 07:19] LABS: ANION GAP 7 mmol/L (8-16); CARBON DIOXIDE 27 mmol/L (22-29); CHLORIDE 104 mmol/L (98-107); CREATININE 0.85 mg/dL (0.60-1.30); GLOMERULAR FILTR. RATE CALC > 60 mL/min (>60); GLUCOSE,RANDOM 139 mg/dL (70-110); POTASSIUM 4.1 mmol/L (3.5-5.1); SODIUM SERUM 138 mmol/L (136-145); UREA NITROGEN, BLOOD 18 mg/dL (7-18)
[2023-06-16 08:31] VITALS: BP 142/83; PULSE 86; RESP 18; TEMP 98.3
[2023-06-16] MEDS: LevETIRAcetam 500 MG TABLET PO SCH (08:48)
[2023-06-16] MEDS: HEPARIN SODIUM,PORCINE 5,000 UNITS/ML VIAL SQ SCH ×3 (08:48→15:59)
[2023-06-16] MEDS: DOCUSATE SODIUM 100 MG CAPSULE PO SCH (08:48)
[2023-06-16] MEDS ORDERED: FLUoxetine HCL 10 MG CAPSULE PO SCH (09:00)
[2023-06-16] MEDS ORDERED: LISINOPRIL 10 MG TABLET PO SCH (09:00)
[2023-06-16] MEDS ORDERED: ASPIRIN 81 MG CHEWABLE TABLET PO SCH (09:00)
[2023-06-16 13:15] VITALS: BP 117/61; PULSE 92; RESP 18; TEMP 98.1
[2023-06-16] MEDS ORDERED: LORazepam 2 MG/ML VIAL IVP PRN ×2 (14:00)
[2023-06-16 15:45] VITALS: BP 133/78; PULSE 82; RESP 18; TEMP 98
[2023-06-16 18:01] LABS: GLUCOMETER DEV NAME(LOC) 5S.2C; GLUCOSE,POINT OF CARE 169 MG/DL (70-110)
[2023-06-16 18:01] LABS: GLUCOMETER DEV NAME(LOC) 5S.2C; GLUCOSE,POINT OF CARE 169 MG/DL (70-110)
[2023-06-16 18:21] LABS: GLUCOMETER DEV NAME(LOC) 5N.1C; GLUCOSE,POINT OF CARE 239 MG/DL (70-110)
== END 2023-06-16 19:00 | disposition home or self-care (01) | DRG 52 ==
LOC: EMS 00:03 → AHU 05:53 → 5S 13:53
PROVIDERS: ADMIT Internal Medicine; ATTEND Internal Medicine
DX: G92.8 Other toxic encephalopathy (principal); E11.65 Type 2 diabetes mellitus with hyperglycemia; I10 Essential (primary) hypertension; E87.6 Hypokalemia; F16.10 Hallucinogen abuse, uncomplicated; Z20.822 Contact with and (suspected) exposure to COVID-19; I16.0 Hypertensive urgency; E11.9 Type 2 diabetes mellitus without complications; F41.9 Anxiety disorder, unspecified; F20.9 Schizophrenia, unspecified; F31.9 Bipolar disorder, unspecified; G40.909 Epilepsy, unspecified, not intractable, without status epilepticus; Z83.3 Family history of diabetes mellitus; Z86.73 Personal history of transient ischemic attack (TIA), and cerebral infarction without residual deficits; Y92.9 Unspecified place or not applicable
CPT/HCPCS: 70496; 70498; 70551; 71045; 80048; 80053; 80061; 80307; 81001; 82948; 82962; 83735; 84484; 85025; 85610; 92610; 93005; 97163; 99291; J1644; J1815; J2060; J7050; Q9967; 36415-L1; 36415-TC; 70450; 70450-TC

== ENCOUNTER 2023-12-23 12:51 | Emergency (ER) | payer MEDICAID, OTHER ==
[~2023-12-23] VITALS: Ht 177.8 cm; Wt 100.0 kg
[~2023-12-23 12:51] MED LIST changes: +ASPI81TA87 PO; +ATOR20TA65 PO; +ATOR40TA71 PO; +FLUO-177 PO; +FLUO-342 PO; +FLUO-418 PO; -FLUO10CA24 PO; +INSLAN SQ; +INSU100V51 SQ; +LISI-661 PO; +LISI10TA24 PO; +METF-1185 PO; +QUET200T PO; +QUET200T30 PO
[2023-12-23 13:00] VITALS: TEMP 98.3
[2023-12-23 14:02] LABS: ALCOHOL, BLOOD (SERUM) < 3 mg/dL (0-10)
[2023-12-23 14:10] LABS: BASOPHILS % (AUTO) 0.6 % (0.0-2.0); EOSINOPHILS % (AUTO) 0.9 % (1.0-6.0); HEMATOCRIT 41.5 % (41-53); HEMOGLOBIN 13.4 g/dL (13.5-17.5); LYMPHOCYTES # (AUTO) 2.1 K/uL (1.0-4.8); LYMPHOCYTES % (AUTO) 25.3 % (22.0-44.0); MEAN CORPUSCULAR HEMOGLOBIN 29.7 pg (26.0-34.0); MEAN CORPUSCULAR HGB CONC 32.4 G/dL (31.0-37.0); MEAN CORPUSCULAR VOLUME 92 fL (80-100); MONOCYTES # (AUTO) 0.4 K/uL (0.1-1.0); MONOCYTES % (AUTO) 5.1 % (2.0-9.0); NEUTROPHILS # (AUTO) 5.8 K/uL (1.8-7.7); NEUTROPHILS % (AUTO) 68.1 % (40.0-70.0); PLATELET COUNT (AUTO) 239 K/uL (150-450); RED BLOOD CELL COUNT(AUTO) 4.52 MIL/uL (4.50-5.90); RED CELL DISTRIBUTION WIDTH 12.9 % (11.5-14.5); WHITE BLOOD COUNT (AUTO) 8.5 K/uL (4.5-11.0)
[2023-12-23] MEDS ORDERED: ATOR40TA28 PO (14:19)
[2023-12-23] MEDS ORDERED: PREG25CA19 PO (14:19)
[2023-12-23] MEDS ORDERED: LISI20TA24 PO (14:19)
[2023-12-23] MEDS ORDERED: SEMA0.258 SQ (14:19)
[2023-12-23] MEDS: SODIUM CHLORIDE 0.9% 1,000 ML IV ONE (14:32)
[2023-12-23 14:46] VITALS: BP 164/110; PULSE 82; RESP 16
[2023-12-23 14:55] LABS: ANION GAP 10 mmol/L (8-16); CALCIUM, TOTAL 9.3 mg/dL (8.8-10.5); CARBON DIOXIDE 27 mmol/L (22-29); CHLORIDE 103 mmol/L (98-107); CREATININE 1.21 mg/dL (0.60-1.30); GLOMERULAR FILTR. RATE CALC > 60 mL/min (>60); GLUCOSE,RANDOM 213 mg/dL (70-110); POTASSIUM 3.7 mmol/L (3.5-5.1); SODIUM SERUM 140 mmol/L (136-145); UREA NITROGEN, BLOOD 15 mg/dL (7-18)
[2023-12-23 15:40] LABS: ALCOHOL, URINE DRUG SCREEN NEGATIVE (NEGATIVE); AMPHET/METH SCREEN,URINE NEGATIVE (NEGATIVE); BARBITURATE SCREEN, URINE NEGATIVE (NEGATIVE); BENZODIAZEPINES SCREEN,URINE NEGATIVE (NEGATIVE); CANNABINOID SCREEN,URINE NEGATIVE (NEGATIVE); COCAINE SCREEN,URINE NEGATIVE (NEGATIVE); METHADONE SCREEN, URINE NEGATIVE (NEGATIVE); OPIATE SCREEN,URINE NEGATIVE (NEGATIVE); PHENCYCLIDINE SCREEN,URINE POSITIVE (NEGATIVE)
== END 2023-12-23 16:30 | disposition left against medical advice (07) ==
LOC: EMS 12:56
DX: F16.10 Hallucinogen abuse, uncomplicated (principal); I10 Essential (primary) hypertension
CPT/HCPCS: 99284; 96360; 70450; 80048; 82962; 85025; 36415; 80307; G0480; J7030

== ENCOUNTER 2024-01-04 04:40 | Emergency (ER) | payer OTHER ==
[~2024-01-04] VITALS: Ht 175.3 cm; Wt 102.0 kg
[~2024-01-04 04:40] MED LIST changes: -ASPI81TA87 PO; -ATOR20TA PO; -ATOR20TA65 PO; +ATOR40TA28 PO; -ATOR40TA71 PO; -FLUO-342 PO; -FLUO-418 PO; -INSU100V51 SQ; -LISI-661 PO; -LISI-893 PO; -LISI10TA24 PO; +LISI20TA24 PO; -METF-1185 PO; +PREG25CA19 PO; -QUET200T PO; +SEMA0.258 SQ
[2024-01-04 05:49] VITALS: TEMP 98.9
[2024-01-04 06:14] LABS: BASOPHILS % (AUTO) 0.6 % (0.0-2.0); EOSINOPHILS % (AUTO) 0.9 % (1.0-6.0); HEMATOCRIT 39.2 % (41-53); HEMOGLOBIN 12.9 g/dL (13.5-17.5); LYMPHOCYTES # (AUTO) 1.7 K/uL (1.0-4.8); LYMPHOCYTES % (AUTO) 21.1 % (22.0-44.0); MEAN CORPUSCULAR HEMOGLOBIN 30.4 pg (26.0-34.0); MEAN CORPUSCULAR HGB CONC 32.9 G/dL (31.0-37.0); MEAN CORPUSCULAR VOLUME 93 fL (80-100); MONOCYTES # (AUTO) 0.6 K/uL (0.1-1.0); MONOCYTES % (AUTO) 7.8 % (2.0-9.0); NEUTROPHILS # (AUTO) 5.7 K/uL (1.8-7.7); NEUTROPHILS % (AUTO) 69.6 % (40.0-70.0); PLATELET COUNT (AUTO) 236 K/uL (150-450); RED BLOOD CELL COUNT(AUTO) 4.24 MIL/uL (4.50-5.90); RED CELL DISTRIBUTION WIDTH 12.6 % (11.5-14.5); WHITE BLOOD COUNT (AUTO) 8.2 K/uL (4.5-11.0)
[2024-01-04] MEDS: KETOROLAC TROMETHAMINE 60 MG/2 ML VIAL IM ONE (06:19)
[2024-01-04 06:25] LABS: ANION GAP 5 mmol/L (8-16); CALCIUM, TOTAL 9.4 mg/dL (8.8-10.5); CARBON DIOXIDE 30 mmol/L (22-29); CHLORIDE 101 mmol/L (98-107); CREATININE 1.35 mg/dL (0.60-1.30); GLOMERULAR FILTR. RATE CALC > 60 mL/min (>60); GLUCOSE,RANDOM 189 mg/dL (70-110); POTASSIUM 4.3 mmol/L (3.5-5.1); SODIUM SERUM 136 mmol/L (136-145); UREA NITROGEN, BLOOD 14 mg/dL (7-18)
[2024-01-04 06:32] LABS: ALCOHOL, BLOOD (SERUM) < 3 mg/dL (0-10)
[2024-01-04 08:41] LABS: PH,URINE DRUG SCREEN 5.5 (5.0-8.0)
[2024-01-04 08:50] LABS: ALCOHOL, URINE DRUG SCREEN NEGATIVE (NEGATIVE); AMPHET/METH SCREEN,URINE NEGATIVE (NEGATIVE); BARBITURATE SCREEN, URINE NEGATIVE (NEGATIVE); BENZODIAZEPINES SCREEN,URINE NEGATIVE (NEGATIVE); CANNABINOID SCREEN,URINE NEGATIVE (NEGATIVE); COCAINE SCREEN,URINE NEGATIVE (NEGATIVE); METHADONE SCREEN, URINE NEGATIVE (NEGATIVE); OPIATE SCREEN,URINE NEGATIVE (NEGATIVE); PHENCYCLIDINE SCREEN,URINE POSITIVE (NEGATIVE)
[2024-01-04 08:53] VITALS: BP 135/72; PULSE 86; RESP 18; O2SAT 99
== END 2024-01-04 09:10 | disposition home or self-care (01) ==
LOC: EMS 04:43
DX: F29 Unspecified psychosis not due to a substance or known physiological condition (principal); F16.10 Hallucinogen abuse, uncomplicated; I10 Essential (primary) hypertension
CPT/HCPCS: 99284; 80048; 85025; 36415; 96372; 80307; G0480; J1885

== ENCOUNTER 2024-07-14 07:42 | Emergency (ER) | payer OTHER ==
[~2024-07-14] VITALS: Ht 180.3 cm; Wt 107.0 kg
[~2024-07-14 07:42] MED LIST changes: -INSLAN SQ; -PREG25CA19 PO; -QUET200T30 PO
[2024-07-14] MEDS: LISINOPRIL 10 MG TABLET PO ONE (08:22)
[2024-07-14] MEDS: SODIUM CHLORIDE 0.9% 1,000 ML IV ONE (08:22)
[2024-07-14] MEDS: INSULIN REGULAR, HUMAN 100 UNITS/ML IVP ONE (08:23)
[2024-07-14 08:25] LABS: GLUCOMETER DEV NAME(LOC) ER.7; GLUCOSE,POINT OF CARE 327 MG/DL (70-110)
[2024-07-14 08:35] LABS: BASOPHILS % (AUTO) 0.7 % (0.0-2.0); EOSINOPHILS % (AUTO) 1.3 % (1.0-6.0); HEMATOCRIT 46.6 % (41-53); HEMOGLOBIN 14.9 g/dL (13.5-17.5); LYMPHOCYTES # (AUTO) 1.3 K/uL (1.0-4.8); LYMPHOCYTES % (AUTO) 17.9 % (22.0-44.0); MEAN CORPUSCULAR HEMOGLOBIN 29.4 pg (26.0-34.0); MEAN CORPUSCULAR HGB CONC 31.9 G/dL (31.0-37.0); MEAN CORPUSCULAR VOLUME 92 fL (80-100); MONOCYTES # (AUTO) 0.3 K/uL (0.1-1.0); MONOCYTES % (AUTO) 4.2 % (2.0-9.0); NEUTROPHILS # (AUTO) 5.3 K/uL (1.8-7.7); NEUTROPHILS % (AUTO) 75.9 % (40.0-70.0); PLATELET COUNT (AUTO) 220 K/uL (150-450); RED BLOOD CELL COUNT(AUTO) 5.06 MIL/uL (4.50-5.90)
[2024-07-14 08:40] LABS: PROTHROMBIN TIME 9.9 SEC (9.4-11.6)
[2024-07-14 08:43] LABS: APPEARANCE,URINE CLEAR (CLEAR); BILIRUBIN,URINE NEGATIVE (NEGATIVE); COLOR,URINE COLORLESS (YELLOW); GLUCOSE, URINE (UA) >=1000 mg/dL (NEGATIVE); KETONES,URINE NEGATIVE (NEGATIVE); LEUKOCYTE ESTERASE ,URINE NEGATIVE (NEGATIVE); NITRATE,URINE NEGATIVE (NEGATIVE); OCCULT BLOOD,URINE TRACE (NEGATIVE); PROTEIN,URINE TRACE mg/dL (NEGATIVE); SPECIFIC GRAVITIY, URINE 1.029 (1.003-1.030); UROBILINOGEN,URINE <=1.0 mg/dL (<=1.0)
[2024-07-14 08:44] LABS: ANION GAP 6 mmol/L (8-16); CALCIUM, TOTAL 9.4 mg/dL (8.8-10.5); CARBON DIOXIDE 31 mmol/L (22-29); CHLORIDE 102 mmol/L (98-107); CREATININE 1.14 mg/dL (0.60-1.30); GLOMERULAR FILTR. RATE CALC > 60 mL/min (>60); GLUCOSE,RANDOM 319 mg/dL (70-110); POTASSIUM 4.9 mmol/L (3.5-5.1); SODIUM SERUM 139 mmol/L (136-145); UREA NITROGEN, BLOOD 16 mg/dL (7-18)
[2024-07-14 08:48] LABS: B-TYPE NATRIURETIC PEPTIDE 18 pg/mL (0-100)
[2024-07-14 08:49] LABS: BACTERIA,URINE None Seen /HPF (None Seen); RBC,URINE 0-2 /HPF (0-2); SQUAMOUS EPITHELIAL CELL,UR Few /LPF (None Seen); WBC,URINE None Seen /HPF (0-5)
[2024-07-14 08:52] LABS: CREATINE KINASE, TOTAL ONLY 357 U/L (39-308); TROPONIN I-HIGH SENSITIVITY 22 ng/L (<76)
[2024-07-14 08:58] LABS: ALCOHOL, URINE DRUG SCREEN NEGATIVE (NEGATIVE); AMPHET/METH SCREEN,URINE NEGATIVE (NEGATIVE); BARBITURATE SCREEN, URINE NEGATIVE (NEGATIVE); BENZODIAZEPINES SCREEN,URINE NEGATIVE (NEGATIVE); CANNABINOID SCREEN,URINE NEGATIVE (NEGATIVE); COCAINE SCREEN,URINE NEGATIVE (NEGATIVE); METHADONE SCREEN, URINE NEGATIVE (NEGATIVE); OPIATE SCREEN,URINE NEGATIVE (NEGATIVE); PHENCYCLIDINE SCREEN,URINE POSITIVE (NEGATIVE)
[2024-07-14] MEDS: LevETIRAcetam 500 MG in DEXTROSE 5%-WATER 100 ML IV ONE (09:19)
[2024-07-14 10:05] VITALS: BP 144/81; PULSE 81; RESP 14; TEMP 98.5; O2SAT 99
== END 2024-07-14 10:10 | disposition home or self-care (01) ==
LOC: EMS 07:44
DX: D68.9 Coagulation defect, unspecified (principal); G40.909 Epilepsy, unspecified, not intractable, without status epilepticus; E11.65 Type 2 diabetes mellitus with hyperglycemia; I10 Essential (primary) hypertension; Z79.4 Long term (current) use of insulin; Z79.82 Long term (current) use of aspirin; Z79.84 Long term (current) use of oral hypoglycemic drugs; Z79.85 Long-term (current) use of injectable non-insulin antidiabetic drugs; Z79.899 Other long term (current) drug therapy; Z86.73 Personal history of transient ischemic attack (TIA), and cerebral infarction without residual deficits; Z91.148 Patient's other noncompliance with medication regimen for other reason
CPT/HCPCS: 99285; 96365; 71045; 96361; 96375; 80048; 81001; 82550; 82962; 83880; 84484; 85025; 85610; 85730; 36415; 93005; 80307; J0712; J1815; J7060; J7030

== ENCOUNTER 2025-01-04 19:41 | Emergency (ER) | payer OTHER ==
[~2025-01-04] VITALS: Ht 175.3 cm; Wt 100.0 kg
[2025-01-04 21:30] VITALS: TEMP 98.605328
[2025-01-05] MEDS: SODIUM CHLORIDE 0.9% 1,000 ML IV ONE (00:07)
[2025-01-05 00:22] LABS: PLATELET COUNT (AUTO) 238 K/uL (150-450); RED BLOOD CELL COUNT(AUTO) 4.66 MIL/uL (4.50-5.90); RED CELL DISTRIBUTION WIDTH 13.1 % (11.5-14.5); WHITE BLOOD COUNT (AUTO) 7.3 K/uL (4.5-11.0)
[2025-01-05 00:35] LABS: CALCIUM, TOTAL 9.4 mg/dL (8.8-10.5); CREATININE 1.28 mg/dL (0.60-1.30); GLOMERULAR FILTR. RATE CALC > 60 mL/min (>60); GLUCOSE,RANDOM 254 mg/dL (70-110); SODIUM SERUM 136 mmol/L (136-145); UREA NITROGEN, BLOOD 17 mg/dL (7-18)
[2025-01-05] MEDS: LIDOCAINE 5% TRANSDERMAL PATCH TD ONE (01:41)
[2025-01-05] MEDS: KETOROLAC TROMETHAMINE 30 MG/ML VIAL IM ONE (01:41)
[2025-01-05] MEDS ORDERED: TRAM50TA5 PO (01:53)
[2025-01-05 02:00] VITALS: BP 120/63; PULSE 82; RESP 18; O2SAT 95
== END 2025-01-05 02:35 | disposition home or self-care (01) ==
LOC: EMS 19:41
DX: M54.50 Low back pain, unspecified (principal); M25.562 Pain in left knee; E11.65 Type 2 diabetes mellitus with hyperglycemia; I10 Essential (primary) hypertension; F15.90 Other stimulant use, unspecified, uncomplicated; Z86.73 Personal history of transient ischemic attack (TIA), and cerebral infarction without residual deficits; Z79.85 Long-term (current) use of injectable non-insulin antidiabetic drugs; Z79.82 Long term (current) use of aspirin; Z79.899 Other long term (current) drug therapy; V89.2XXA Person injured in unspecified motor-vehicle accident, traffic, initial encounter; Y93.89 Activity, other specified; Y92.410 Unspecified street and highway as the place of occurrence of the external cause; Y99.8 Other external cause status
CPT/HCPCS: 99285; 80048; 85025; 36415; 72040; 72100; 73562; 96360; 96361; 96372; J1885; J7030